=== PATIENT | male | born 1970 | race Caucasian/White ===

== ENCOUNTER → 2017-04-05 | Day surgery (SDC) | payer BC ==
[2017-04-05] VITALS (12 sets, daily range): BP systolic 96–143; BP diastolic 57–85
[~2017-04-05] VITALS: Wt 79.4 kg
[~2017-04-05] MED LIST: JARDIANCE10 MG PO; LEVEMIR10 ML SC; NOVOLIN R100 U/ML SC; VASOTEC10 MG PO; VITAMIN D5000 I3 PO
--- NOTE | ~2017-04-05 | O ---
[place], [place] OPERATIVE NOTE NAME: [id number] UNIT #: [id number] ROOM: DOCTOR: DONELL NEWBY MD BIRTHDATE: [birth year] DOS: 04/05/2017 PREOPERATIVE DIAGNOSIS: Right perirectal abscess. POSTOPERATIVE DIAGNOSIS: Right perirectal abscess. PROCEDURE: Incision and drainage of perirectal abscess. SURGEON: Donell Newby MD RETAIL LEADER: MS4. ANESTHESIA: MAC. INDICATIONS: This is a 46-year-old gentleman who is here for an incision and drainage of a right perirectal abscess. The procedure and its complications were explained to the patient in detail. Complications that were discussed included, but were not limited to, bleeding, infection and damage to underlying vital structures, he agreed to proceed. DESCRIPTION OF PROCEDURE: After identifying the patient, the patient was brought to the operating suite and placed in the supine position. After IV sedation was administered, the patient was placed in lithotomy position and the parts were then painted and draped in the usual sterile fashion. The patient had an opening in the region of the abscess where there was pus was seen to be coming out. This opening was further opened even more with the help of a knife and the abscess cavity was entered. A specimen of the pus was sent for culture and sensitivity. Saline was used for irrigation of the abscess cavity and then it was packed with the help of a half inch iodoform pack. A dressing was placed. The patient was then brought back to the recovery room in stable fashion. There were no complications. Dr. Donell Newby, the attending surgeon, was present throughout the operating case. Donell Newby MD CM:OPRECORD:OPERATIVE NOTE [id number] DONELL NEWBY MD 04/05/172319 interface
== END | disposition home or self-care (01) ==
LOC: SDC 07:24
DX: K61.1 Rectal abscess (principal); I10 Essential (primary) hypertension; E11.9 Type 2 diabetes mellitus without complications; F17.210 Nicotine dependence, cigarettes, uncomplicated

== ENCOUNTER → 2021-02-23 | Outpatient (CLI) | payer BC | END | disposition home or self-care (01) | LOC: RAD 12:32 | PROVIDERS: ATTEND Nurse Practitioner Family | DX: M79.641 Pain in right hand (principal); F17.210 Nicotine dependence, cigarettes, uncomplicated; M72.0 Palmar fascial fibromatosis [Dupuytren]; E10.65 Type 1 diabetes mellitus with hyperglycemia ==

== ENCOUNTER → 2022-04-25 | Outpatient (CLI) | payer BC ==
[2022-04-25 09:53] LABS: BASO % 0.6 % (0.0-1.0); EOS # 0.2 10*3/uL (0.0-0.4); EOS % 3.9 % (1.0-4.0); HEMATOCRIT 42.6 % (42.0-52.0); LYMPH # 1.6 10*3/uL (1.3-4.4); LYMPH % 25.1 % (27.0-41.0); MEAN CELL VOLUME 93.2 fl (80.0-94.0); MEAN CORPUSCULAR HGB 31.1 pg (27.0-31.0); MEAN CORPUSCULAR HGB CONC 33.3 g/dl (33.0-37.0); MEAN PLATELET VOLUME 9.5 fl (9.6-12.3); MONO # 0.4 10*3/uL (0.1-1.0); MONO % 6.1 % (3.0-9.0); NEUT % 64.1 % (47.0-73.0); PLATELET COUNT AUTOMATED 242 10*3/uL (130-400); RED BLOOD COUNT 4.57 10*6/uL (4.50-5.90); RED CELL DISTRI WIDTH 12.3 % (0-14.5); WHITE BLOOD COUNT 6.2 10*3/uL (4.8-10.8)
[2022-04-25 10:09] LABS: ALKALINE PHOSPHATASE 82 U/L (45-117); BUN 23 mg/dl (7-24); CHLORIDE 109 mmol/L (98-107); CHOLESTEROL 208 mg/dL (<200); LDL CHOLESTEROL 126 mg/dL (9-159); SGOT/AST 14 IU/L (3-35); SGPT/ALT 26 U/L (12-78); SODIUM 140 mmol/L (136-145); TRIGLYCERIDES 93 mg/dl (<150)
== END | disposition home or self-care (01) ==
LOC: LAB 09:35
PROVIDERS: ATTEND Nurse Practitioner Family
DX: E78.2 Mixed hyperlipidemia (principal)

== ENCOUNTER 2022-05-13 15:05 | Emergency (ER) | payer BC ==
[~2022-05-13] VITALS: Wt 65.8 kg
[2022-05-13] MEDS ORDERED: SEPTDS PO (15:59)
[2022-05-13] MEDS ORDERED: CEPHALEXIN500 M1 PO (15:59)
== END 2022-05-13 16:08 | disposition home or self-care (01) ==
LOC: ED 15:05
DX: L08.9 Local infection of the skin and subcutaneous tissue, unspecified (principal); Z79.899 Other long term (current) drug therapy

== ENCOUNTER → 2022-06-06 | Outpatient (CLI) | payer BC ==
[~2022-06-06] MED LIST changes: +CEPHALEXIN500 M1 PO; +SEPTDS PO
== END | disposition home or self-care (01) ==
LOC: US 13:14
PROVIDERS: ATTEND Nurse Practitioner Family
DX: E10.65 Type 1 diabetes mellitus with hyperglycemia (principal); L03.221 Cellulitis of neck; R22.1 Localized swelling, mass and lump, neck

== ENCOUNTER → 2024-02-19 | Outpatient (CLI) | payer OTHER ==
[2024-02-19 11:23] LABS: URINE CREATININE RANDOM 143.18 mg/dL
[2024-02-19 11:42] LABS: ALKALINE PHOSPHATASE 85 U/L (46-116); BUN 15 mg/dl (9-23); CHLORIDE 105 mmol/L (98-107); CHOLESTEROL 186 mg/dL (<200); LDL CHOLESTEROL 122 mg/dL (9-159); POTASSIUM 4.8 mmol/L (3.4-5.1); SGPT/ALT 14 U/L (5-49); TOTAL PROTEIN 6.9 gm/dL (6.0-8.0); TRIGLYCERIDES 76 mg/dl (<150)
== END | disposition home or self-care (01) ==
LOC: LAB 10:16
PROVIDERS: ATTEND Internal Medicine Endocrinology, Diabetes & Metabolism
DX: E10.65 Type 1 diabetes mellitus with hyperglycemia (principal)